=== PATIENT | female | born 1950 | race Caucasian/White ===

== ENCOUNTER 2022-01-04 10:00 | Emergency (ER) | payer MEDICARE, BC ==
[2022-01-04] MEDS: Bacitracin/Neomycin/Polymyxin B Oint 0.9 GM U/D Packet TOP ONE (10:45)
[2022-01-04 11:01] LABS: CHLORIDE,CL 104 mEq/L (98-106); ESTIMATED GFR > 60 mL/min (>=60); SODIUM,NA 142 mEq/L (136-145)
== END 2022-01-04 12:15 | disposition home or self-care (01) ==
LOC: CC.ED 10:00
DX: S06.0X0A Concussion without loss of consciousness, initial encounter (principal); S00.83XA Contusion of other part of head, initial encounter; E78.00 Pure hypercholesterolemia, unspecified; I10 Essential (primary) hypertension; E11.9 Type 2 diabetes mellitus without complications; Z88.2 Allergy status to sulfonamides; Z79.4 Long term (current) use of insulin; Z79.899 Other long term (current) drug therapy; W18.09XA Striking against other object with subsequent fall, initial encounter
CPT/HCPCS: 36415; 70450; 70486; 80053; 82947; 85025; 99283; 99284-25